=== PATIENT | female | born 1955 | race Two or more races ===

== ENCOUNTER 2017-07-05 09:09 | Emergency (ER) | payer OTHER ==
[2017-07-05 09:19] VITALS: BP 135/86; PULSE 89; TEMP 97.4; BMI 29.8
--- NOTE | 2017-07-05 11:04 | PDOC ---
History of Present Illness - General Chief Complaint: Injury Stated Complaint: FALL Time Seen by Provider: 07/05/17 10:34 History Source: Patient Exam Limitations: No Limitations - History of Present Illness Initial Comments: 07/05/17 11:00 Chief complaint: Ankle injury Patient is 61-year-old female with a history of diabetes, hypertension states that she injured her ankle yesterday, right ankle is painful. Patient is ambulatory. GENERAL/CONSTITUTIONAL: No fever, weakness. dizziness HEAD, EYES, EARS, NOSE AND THROAT: No change in vision. No ear pain or discharge. No sore throat. CARDIOVASCULAR: No chest pain RESPIRATORY: No shortness of breath or cough GASTROINTESTINAL: No pain, nausea, vomiting, diarrhea or constipation GENITOURINARY: No dysuria MUSCULOSKELETAL: No neck or back pain, + right ankle SKIN: No rash NEUROLOGIC: No headache, vertigo, loss of consciousness, or loss of sensation. GENERAL: The patient is awake, alert, and fully oriented, in no acute distress. HEAD: Normal with no signs of trauma. EYES: Pupils equal, round and reactive to light, sclera anicteric, conjunctiva clear. ENT: pharynx: no erythema, no exudate, uvula midline NECK: supple CHEST: clear, nontender, rr EXTREMITIES: Right lower extremity with mild tenderness to the ankle and mid lower leg, good range of motion, neurovascular intact. Rest of extremities, Normal range of motion, no edema. NEUROLOGICAL: Normal speech, normal gait. SKIN: Warm, Dry Past History - Past Medical History Allergies/Adverse Reactions: Allergies Allergy/AdvReac Type Severity Reaction Status Date / Time No Known Allergies Allergy Verified 07/05/17 09:19 Home Medications: Ambulatory Orders NK [No Known Home Medication] 07/05/17 COPD: No Diabetes: Yes HTN: Yes Hypercholesterolemia: Yes Thyroid Disease: Yes - Suicide/Smoking/Psychosocial Hx Smoking History: Never smoked Hx Alcohol Use: No Drug/Substance Use Hx: No *Physical Exam - Vital Signs Last Vital Signs Temp Pulse Resp BP Pulse Ox 97.4 F L 89 20 135/86 100 07/05/17 09:16 07/05/17 09:16 07/05/17 09:16 07/05/17 09:16 07/05/17 09:16 Procedures - Splinting Splint Location: Right: Ankle Pre-Proc Neuro Vasc Exam: normal Pre-Made Type: aircast Post-Proc Neuro Vasc Exam: normal Rajeev Bandage: no Sling: No Complications: No ED Treatment Course - RADIOLOGY Radiology Studies Ordered: Category Date Time Status ANKLE & FOOT-RIGHT* [RAD] Stat Radiology 07/05/17 10:49 Ordered LEG TIB/FIB-RIGHT [RAD] Stat Radiology 07/05/17 10:49 Ordered Medical Decision Making - Medical Decision Making 07/05/17 12:08 xray show subtle distal fibula fracture will place in aircast and crutches *DC/Admit/Observation/Transfer Diagnosis at time of Disposition: Fibula fracture Qualifiers: Encounter type: initial encounter Fibula location: distal Fracture type: closed Fracture morphology: unspecified fracture morphology Laterality: right Qualified Code(s): S82.831A - Other fracture of upper and lower end of right fibula, initial encounter for closed fracture - Discharge Dispostion Disposition: HOME Condition at time of disposition: Stable Admit: No - Referrals Referrals: Bashir Lacy MD [Primary Care Provider] - Eriberto Roberto MD [Staff Physician] - - Patient Instructions Printed Discharge Instructions: Ankle Fracture Additional Instructions: Elevate, wear splint You can apply ice for 20 minutes every 2 hours for the next 2 days Motrin 600 mg every 6 hours for pain. Call the orthopedist tomorrow - Post Discharge Activity Forms/Work/School Notes: Back to Work
== END 2017-07-05 12:20 | disposition home or self-care (01) ==
LOC: JERFT 09:09
PROC: 2W3QX1Z Immobilization of Right Lower Leg using Splint (ICD-10-PCS; principal; 2017-07-05)
DX: S82.831A Other fracture of upper and lower end of right fibula, initial encounter for closed fracture (principal); W19.XXXA Unspecified fall, initial encounter; Y93.89 Activity, other specified; Y92.89 Other specified places as the place of occurrence of the external cause; Y99.8 Other external cause status
CPT/HCPCS: 73590-TC-RT; 73610-TC-RT; 73630-TC-RT; 99281-25

== ENCOUNTER 2021-04-24 00:06 | Emergency (ER) | payer OTHER ==
[2021-04-24 00:41] VITALS: BP 163/82; PULSE 90; TEMP 98.3; BMI 28.5
[2021-04-24] MEDS ORDERED: traMADol HCL 50 MG TABLET PO ONE (02:39)
[2021-04-24] MEDS ORDERED: traMADol HCL 50 MG TABLET ONE ×2 (02:48→03:11)
== END 2021-04-24 03:30 | disposition home or self-care (01) ==
LOC: JER 00:06
DX: M54.30 Sciatica, unspecified side (principal)
CPT/HCPCS: 99283-25